=== PATIENT | female | born 1990 | race Caucasian/White ===

== ENCOUNTER 2018-03-21 12:04 | Day surgery (SDC) | payer OTHER ==
[~2018-03-21 12:04] MED LIST: SEVOFLURANE 15 MIN
[2018-03-21] MEDS ORDERED: MIDAZOLAM 1 MG/ML 2 ML INJ (14:40)
[2018-03-21] MEDS ORDERED: FENTAnyl 50 MCG/ML VIAL (14:40)
[2018-03-21] MEDS ORDERED: ROPIVACAINE 0.5 % 30 ML VIAL (14:41)
[2018-03-21] MEDS ORDERED: THROMBIN(HUM PLAS)/FIBRINOG/CA 5 ML VIAL TOP (16:33)
[2018-03-21] MEDS: NEOMYC/POLYMYX/BACIT 30 GM OINT (17:45)
[2018-03-21] MEDS ORDERED: ONDANSETRON 4 MG INJ ×2 (18:56→19:27)
[2018-03-21] MEDS ORDERED: LIDOCAINE 2% (SDV) 5 ML INJ (18:56)
[2018-03-21] MEDS ORDERED: PROPOFOL 20 ML (18:56)
[2018-03-21] MEDS ORDERED: ROCURONIUM 50 MG INJ (18:56)
[2018-03-21] MEDS ORDERED: CEFAZOLIN 1 GM INJ (18:56)
[2018-03-21] MEDS: ROPIVACAINE 0.5 % 30 ML VIAL (19:06)
[2018-03-21] MEDS ORDERED: MEPERIDINE 25 MG INJ (19:27)
[2018-03-21] MEDS ORDERED: DIPHENHYDRAMINE 50 MG INJ IV (19:30)
[2018-03-21] MEDS ORDERED: METOCLOPRAMIDE 10 MG INJ IV (19:30)
[2018-03-21] MEDS ORDERED: NALOXONE (0.4 MG/ML) INJ IV (19:30)
[2018-03-21] MEDS: MEPERIDINE 25 MG INJ IV (19:33)
[2018-03-21] MEDS: ONDANSETRON 4 MG INJ IV (19:35)
[2018-03-21] MEDS: HYDROmorphONE 1 MG/5 ML IV SYRINGE IV ×5 (19:37→20:27)
[2018-03-21] MEDS: FENTAnyl 50 MCG/ML VIAL IV ×4 (19:52→20:07)
[2018-03-21] MEDS: MIDAZOLAM 1 MG/ML 2 ML INJ IV (20:25)
[2018-03-21] MEDS ORDERED: morphine 2 MG INJ IV (20:30)
== END 2018-03-21 22:01 | disposition home or self-care (01) ==
LOC: SDS 12:04
DX: M93.272 Osteochondritis dissecans, left ankle and joints of left foot (principal); M65.872 Other synovitis and tenosynovitis, left ankle and foot; M24.072 Loose body in left ankle
CPT/HCPCS: 29891; 82306